=== PATIENT | male | born 1965 | race Caucasian/White ===

== ENCOUNTER 2016-12-11 19:17 | Emergency (ER) | payer BC, OTHER ==
[~2016-12-11] VITALS: Ht 177.8 cm; Wt 93.6 kg
[~2016-12-11 19:17] MED LIST: CETI10TA10 PO; FLNIN NAE; MULTTAB58 PO
[2016-12-11 19:18] VITALS: Ht 177.8 cm; Wt 93.6 kg
[2016-12-11] MEDS ORDERED: SODIUM CHLORIDE 0.9% 1000ML 1,000 ML IV STA (19:41)
[2016-12-11] MEDS ORDERED: FAMOTIDINE 20MG/102 ML D5W IV STA (19:41)
[2016-12-11] MEDS ORDERED: DiphenhydrAMINE HCL 50 MG/ML VIAL IV STA (19:41)
[2016-12-11] MEDS ORDERED: DEXAMETHASONE SOD INJ 4 MG/ML VIAL IV STA (19:41)
[2016-12-11 20:14] LABS: MANUAL MICROSCOPIC REQUIRED? NO; REVIEW REQ? NO; URINE APPEARANCE CLEAR (CLEAR); URINE BILIRUBIN NEG (NEG); URINE COLOR YELLOW; URINE NITRITE NEG (NEG); URINE PH 5.5 (4.5-7.5); URINE SPECIFIC GRAVITY 1.028 (1.000-1.030); UROBILINOGEN NEG (NEG)
--- NOTE | 2016-12-11 20:14 | DIAGNOSTIC IMAGING REPORT ---
CHEST ONE VIEW PORTABLE CLINICAL HISTORY: Fever, allergic reaction. COMPARISON STUDY: 10/15/2012 FINDINGS: The cardiac and mediastinal contours are normal. There is no evidence of focal pulmonary consolidation. There is no evidence of failure. No pleural effusions are visualized.[ IMPRESSION: No active disease in the chest. Electronically signed by: Alex Ann M.D. 12/11/2016 8:13 PM Dictated Date/Time: 12/11/2016 8:12 PM
[2016-12-11 20:15] LABS: HEMATOCRIT 39.3 % (42-52); MEAN CELL VOLUME 87.1 fL (80-100); MEAN CORPUSCULAR HEMOGLOBIN 30.2 pg (25-34); MEAN CORPUSCULAR HGB CONC 34.6 g/dl (32-36); MEAN PLATELET VOLUME 9.6 fL (7.4-10.4); PLATELET COUNT 212 K/uL (130-400); RED BLOOD COUNT 4.51 M/uL (4.7-6.1)
[2016-12-11] MEDS ORDERED: DEXAMETHASONE SOD INJ 10 MG/ML VIAL ONE (20:19)
[2016-12-11 20:29] LABS: BUN/CREATININE RATIO 13.5 (10-20); CALCIUM 8.3 mg/dl (8.5-10.1); CREATININE 1.3 mg/dl (0.60-1.40); POTASSIUM 3.6 mmol/L (3.5-5.1)
[2016-12-11 20:35] LABS: BASO % 0.1 %; BASO ABS # 0.01 K/uL (0-0.2); COMPLETE YES; EOS % 2.4 %; IG% 0.2 %; LYMPH % 4.6 %; LYMPH ABS # 0.58 K/uL (1.2-3.4); MONO % 6.3 %; NEUT % 86.4 %
--- NOTE | 2016-12-11 20:49 | DIAGNOSTIC IMAGING REPORT ---
CT SINUSES-MAXILLOFACIAL W/O CLINICAL HISTORY: severe sinus congestion COMPARISON STUDY: 07/12/2011 TECHNIQUE: CT scan of the paranasal sinuses was performed in the axial plane. Coronal reconstructed images were obtained and reviewed. CT DOSE: 645.38 mGy.cm FINDINGS: There is no evidence of hydrocephalus. No orbital masses are visualized. There is partial opacification of both maxillary sinuses. There are bilateral maxillary sinus air-fluid levels. There is minimal mucosal thickening within sphenoid. Multiple ethmoid air cells are opacified. There is mild mucosal thickening within the frontal sinuses. There is infundibular narrowing of the right ostiomeatal unit. There is a left-sided nasal septal spur. The frontal and and ethmoid infundibular recesses appear occluded by soft tissue The mastoid air cells appear well-aerated. The middle ear cavities appear well aerated. IMPRESSION: Moderately extensive ethmoid and maxillary sinus mucosal disease with bilateral maxillary sinus air-fluid levels. Electronically signed by: Alex Ann M.D. 12/11/2016 8:48 PM Dictated Date/Time: 12/11/2016 8:44 PM
[2016-12-11] MEDS ORDERED: FLUT0.15 NAE (21:13)
[2016-12-11] MEDS ORDERED: AMOXICILLIN/CLAVULANATE TAB 875 MG TAB PO ONE (22:00)
[2016-12-11] MEDS ORDERED: AMOX875T PO (22:27)
[2016-12-11] MEDS ORDERED: PRED50TA PO (22:27)
[2016-12-11 22:35] VITALS: BP 132/76; PULSE 80; TEMP 36.6; O2SAT 98
--- NOTE | 2016-12-12 01:50 | EMERGENCY ROOM VISIT NOTE ---
History Report prepared by Miki: Eduardo Salazar Under the Supervision of: Dr. Vel Jay M.D. First contact with patient: 19:28 Chief Complaint: FEVER Stated Complaint: FEVER, HIVES, SINUS CONGESTION History of Present Illness The patient is a 51 year old male who presents to the Emergency Room with complaints of worsening hives for the past 3 days. He notes that the hives are only on his upper body. He notes that the hives are itchy and red. The patient also complains of sinus pressure and congestion, low back pain, and fevers. He notes that he has had fevers around 100 to 101 for the past few days. This morning, the patient had an episode of diarrhea. The patient notes that he is in close contact with the flu in his work-place. He notes that yesterday he presented to a walk-in clinic and got swabbed for the flu which was negative. He notes that he was on a 14 day treatment of Levaquin a few weeks ago for a sinus infection. The patient was also recently on Bactrim for a toe infection. Both courses of these antibiotics were finished 7 days before the hives started. The patient took Benadryl for his hives about 5 hours ago which he notes did not help relieve his symptoms. He has also been rotating Tylenol and Motrin for his fevers. Pt denies LOC, headache, diaphoresis, visual changes, neck pain, chest pain, nausea, vomiting, abdominal pain, melena, hematochezia, numbness, weakness, lymphadenopathy, or other complaints. Source of History: patient Onset: 3 days Position: other (global) Timing: other (persistent) Associated Symptoms: + back pain, + diarrhea, + fevers Note: Other associated symptoms: itchy and red hives, sinus pressure and congestion Review of Systems See HPI for pertinent positives and negatives. A total of ten systems were reviewed and were otherwise negative. Past Medical & Surgical Medical Problems: (1) Tonsillectomy Family History FH: cancer FH: diabetes mellitus FH: seizures Social History Smoking Status: Never Smoker Marital Status: Housing Status: lives with significant other Occupation Status: employed Current/Historical Medications Scheduled Amoxicillin & Pot Clavulanate (Augmentin 875-125 mg), 875 MG PO BID Cetirizine Hcl (Zyrtec), 10 MG PO DAILY Fluticasone Propionate (Nasal) (Flonase Allergy Relief), 1 SPRAY ALEJANDRO DAILY Prednisone (Prednisone), 50 MG PO DAILY Allergies Coded Allergies: Acetaminophen (Unverified Allergy, Intermediate, ITCH, 12/11/16) Hydrocodone (Unverified Allergy, Intermediate, ITCH, 12/11/16) POLLEN (Unverified Allergy, Unknown, UNKNOWN, 10/08/12) Physical Exam Vital Signs Date Time Temp Pulse Resp B/P Pulse Ox O2 Delivery O2 Flow Rate FiO2 12/11/16 22:35 36.6 80 18 132/76 98 12/11/16 22:03 36.6 80 18 132/76 98 Room Air 12/11/16 21:12 85 18 121/77 98 Room Air 12/11/16 19:18 36.7 105 20 127/74 97 Room Air Physical Exam GENERAL: Awake, alert, mildly ill appearing, no distress HEAD: Normocephalic, atraumatic. No edema. EYES: Normal conjunctiva. Sclera non-icteric. EARS: Middle ear effusion in right ear.. Left TM normal. NOSE: Mild congestion. OROPHARYNX: Lips, tongue, and mucosa unremarkable. No erythema or exudate. No tongue or posterior oropharynx swelling. NECK: Supple. No nuchal rigidity. FROM. No adenopathy. Negative jolt accentuation test. RESPIRATORY: CTA bilaterally. No wheezes rales or rhonchi. CARDIAC: Borderline tachycardic rate, normal rhythm. ABDOMEN: Soft, non distended. No tenderness to palpation. NEURO: Normal sensorium. SKIN: Scattered hives on back, head, face, chest, trunk. Medical Decision & Procedures ER Provider Diagnostic Interpretation: X ray results as stated below per my interpretation and radiologist interpretation. Other radiology results as stated below per my review and radiologist interpretation CT SINUSES-MAXILLOFACIAL W/O CLINICAL HISTORY: severe sinus congestion COMPARISON STUDY: 07/12/2011 TECHNIQUE: CT scan of the paranasal sinuses was performed in the axial plane. Coronal reconstructed images were obtained and reviewed. CT DOSE: 645.38 mGy.cm FINDINGS: There is no evidence of hydrocephalus. No orbital masses are visualized. There is partial opacification of both maxillary sinuses. There are bilateral maxillary sinus air-fluid levels. There is minimal mucosal thickening within sphenoid. Multiple ethmoid air cells are opacified. There is mild mucosal thickening within the frontal sinuses. There is infundibular narrowing of the right ostiomeatal unit. There is a left-sided nasal septal spur. The frontal and and ethmoid infundibular recesses appear occluded by soft tissue The mastoid air cells appear well-aerated. The middle ear cavities appear well aerated. IMPRESSION: Moderately extensive ethmoid and maxillary sinus mucosal disease with bilateral maxillary sinus air-fluid levels. Electronically signed by: Alex Ann M.D. 12/11/2016 8:48 PM Dictated Date/Time: 12/11/2016 8:44 PM CHEST ONE VIEW PORTABLE CLINICAL HISTORY: Fever, allergic reaction. COMPARISON STUDY: 10/15/2012 FINDINGS: The cardiac and mediastinal contours are normal. There is no evidence of focal pulmonary consolidation. There is no evidence of failure. No pleural effusions are visualized.[ IMPRESSION: No active disease in the chest. Electronically signed by: Alex Ann M.D. 12/11/2016 8:13 PM Dictated Date/Time: 12/11/2016 8:12 PM Laboratory Results 12/11/16 19:53 Red Blood Count 4.51, Mean Corpuscular Volume 87.1, Mean Corpuscular Hemoglobin 30.2, Mean Corpuscular Hemoglobin Concent 34.6, Mean Platelet Volume 9.6, Neutrophils (%) (Auto) 86.4, Lymphocytes (%) (Auto) 4.6, Monocytes (%) (Auto) 6.3, Eosinophils (%) (Auto) 2.4, Basophils (%) (Auto) 0.1, Neutrophils # (Auto) 10.79, Lymphocytes # (Auto) 0.58, Monocytes # (Auto) 0.79, Eosinophils # (Auto) 0.30, Basophils # (Auto) 0.01 12/11/16 19:53 Test 12/11/16 19:53 White Blood Count 12.50 K/uL (4.8-10.8) Red Blood Count 4.51 M/uL (4.7-6.1) Hemoglobin 13.6 g/dL (14.0-18.0) Hematocrit 39.3 % (42-52) Mean Corpuscular Volume 87.1 fL (80-100) Mean Corpuscular Hemoglobin 30.2 pg (25-34) Mean Corpuscular Hemoglobin Concent 34.6 g/dl (32-36) Platelet Count 212 K/uL (130-400) Mean Platelet Volume 9.6 fL (7.4-10.4) Neutrophils (%) (Auto) 86.4 % Lymphocytes (%) (Auto) 4.6 % Monocytes (%) (Auto) 6.3 % Eosinophils (%) (Auto) 2.4 % Basophils (%) (Auto) 0.1 % Neutrophils # (Auto) 10.79 K/uL (1.4-6.5) Lymphocytes # (Auto) 0.58 K/uL (1.2-3.4) Monocytes # (Auto) 0.79 K/uL (0.11-0.59) Eosinophils # (Auto) 0.30 K/uL (0-0.5) Basophils # (Auto) 0.01 K/uL (0-0.2) RDW Standard Deviation 39.9 fL (36.4-46.3) RDW Coefficient of Variation 12.5 % (11.5-14.5) Immature Granulocyte % (Auto) 0.2 % Immature Granulocyte # (Auto) 0.03 K/uL (0.00-0.02) Urine Color YELLOW Urine Appearance CLEAR (CLEAR) Urine pH 5.5 (4.5-7.5) Urine Specific [place] 1.028 (1.000-1.030) Urine Protein NEG (NEG) Urine Glucose (UA) NEG (NEG) Urine Ketones TRACE (NEG) Urine Occult Blood NEG (NEG) Urine Nitrite NEG (NEG) Urine Bilirubin NEG (NEG) Urine Urobilinogen NEG (NEG) Urine Leukocyte Esterase NEG (NEG) Anion Gap 8.0 mmol/L (3-11) Est Creatinine Clear Calc Drug Dose 76.4 ml/min Estimated GFR () 72.7 Estimated GFR (Non- 62.7 BUN/Creatinine Ratio 13.5 (10-20) Calcium Level 8.3 mg/dl (8.5-10.1) Total Bilirubin 1.0 mg/dl (0.2-1) Direct Bilirubin 0.2 mg/dl (0-0.2) Aspartate Amino Transf (AST/SGOT) 18 U/L (15-37) Alanine Aminotransferase (ALT/SGPT) 30 U/L (12-78) Alkaline Phosphatase 71 U/L (45-117) Total Protein 7.2 gm/dl (6.4-8.2) Albumin 3.3 gm/dl (3.4-5.0) Laboratory results reviewed by me Medications Administered Medications (Trade) Dose Ordered Sig/Cholo Route Start Time Stop Time Status Last Admin Dose Admin Sodium Chloride (Nss 1000ml) 1,000 ml @ 999 mls/hr Q1H1M STAT IV 12/11/16 19:41 12/11/16 20:41 DC 12/11/16 20:19 999 MLS/HR Diphenhydramine HCl (Benadryl Inj) 50 mg NOW STAT IV 12/11/16 19:41 12/11/16 19:47 DC 12/11/16 20:19 50 MG Famotidine (Pepcid 20mg/100 ml) 20 mg ONE STAT IV 12/11/16 19:41 12/11/16 19:47 DC 12/11/16 20:19 20 MG Dexamethasone Sodium Phosphate (Decadron Inj) 10 mg STK-MED ONCE .ROUTE 12/11/16 20:19 12/11/16 20:20 DC 12/11/16 20:19 10 MG Amoxicillin/ Clavulanate Potassium (Augmentin Tab) 875 mg ONE ONCE PO 12/11/16 22:00 12/11/16 22:01 DC 12/11/16 22:03 875 MG ED Course 1931: The patient was evaluated in room B3. A complete history and physical exam was performed. 1940: Ordered Famotidine 20 mg IV, Benadryl 50 mg IV, NSS 1000 ml @ 999 mls/hr IV. 2018: Ordered Decadron 10 mg .ROUTE. 2120: At this time, I reevaluated the patient and he was feeling better. 2199: Ordered Augmentin Tab 875 mg PO. 2214: I reevaluated the patient. Discussed results and discharge instructions: He verbalized understanding and agreement. The patient is ready for discharge. Medical Decision Prior records/ancillary studies reviewed. Triage Nursing notes reviewed and agree them. Additional history obtained from patient's . The patient's history was concerning for hives as well as sinus issues Differential diagnosis: Etiologies such as allergic reaction, anaphylaxis, urticaria, Alexandra-Eloy syndrome, toxic epidermal necrolysis, erythema multiforme, sinusitis, viral syndrome, as well as others were entertained. Physical examination: As above. ER treatment provided: Continuous cardiac monitoring Benadryl 50 mg IV Pepcid 20 mg IV Decadron 10 mg IV On reassessment the patient felt much better. Redness and hives were diminished. Some are still present. Oral Augmentin Diagnostic interpretation by me: The labs revealed a slight leukocytosis. Chemistry panel and urinalysis were unremarkable. LFTs were unremarkable. Imaging studies: CT scan as above The patient is doing much better. He had hives but has not been on any antibiotics for almost a week. He does have significant sinus drainage and findings concerning for sinusitis on CT imaging. The exact etiology of his urticaria was not obvious. This may be related to the infection. I discussed conservative management with the patient. He states he has had to be prescribed 4 weeks of antibiotics in the past to help clear his sinus issues. He has done well with Augmentin in the past. The patient was given an oral dose of Augmentin and will be prescribed a full 28 days. I will also give him prednisone for the next 4 days. He'll use Benadryl and Zantac. The patient and his felt very comfortable. He will follow-up closely as an outpatient. I did offer referral to ENT.I gave my usual and customary discussion regarding this issue. By the evaluation outlined above emergent etiologies such as airway compromise, Alexandra-Eloy syndrome, toxic epidermal necrolysis, erythema multiforme, cellulitis, meningitis, abscess, Pott's puffy tumor, as well as others were deemed relatively unlikely. The patient and for informed about the findings as listed above. All questions were answered and they were pleased with the treatment. Return instructions were outlined and the patient was discharged in stable condition. Outpatient prescription management: Augmentin prednisone Referral: The patient was referred back to his primary care physician and to ENT for follow-up in 2-3 days for a recheck of the current condition. The chart was completed utilizing [employer] Speech voice recognition software. Grammatical errors, random word insertions, pronoun errors, and incomplete sentences are an occasional side effect of this system due to software limitations, ambient noise, and hardware issues. Any formal questions or concerns about the content, text, or information contained within the body of this dictation should be directly addressed to the physician for clarification. Impression Primary Impression: Urticaria Additional Impressions: Sinusitis Fever Scribe Attestation The scribe's documentation has been prepared under my direction and personally reviewed by me in its entirety. I confirm that the note above accurately reflects all work, treatment, procedures, and medical decision making performed by me. Departure Information Dispostion Home / Self-Care Prescriptions Prednisone (Prednisone) 50 Mg Tab 50 MG PO DAILY for 4 Days, #4 TAB Prov: Vel Jay MD 12/11/16 Amoxicillin & Pot Clavulanate (Augmentin 875-125 mg) 1 Tab Tab 875 MG PO BID for 28 Days, #55 TAB Prov: Vel Jay MD 12/11/16 Referrals Shyam Byrd M.D. (PCP) Forms HOME CARE DOCUMENTATION FORM, IMPORTANT VISIT INFORMATION Patient Instructions My [facility] Additional Instructions DO NOT drive, drink alcohol, operate machinery, or perform dangerous activities today. You were given medications in the ER that can affect your ability to safely function or operate a vehicle. Prednisone 50mg: Once daily until the prescription is finished. It is best to take this earlier in the day as some patients note occasional difficulty falling asleep when taken in the late evening. Diphenhydramine(Benadryl) 25mg: use 25 to 50 mg every six hours for swelling, itching, or hives. This medication is sedating and will cause drowsiness. Avoid alcohol, operating machinery or dangerous equipment, working on ladders or roofs, DRIVING, or situations where being under the influence may be dangerous. Zantac 75: Take two pills twice a day along with Benadryl as needed for swelling , itching, or hives. Most people know this for its affect on the stomach, but it also acts similar to, but less potent than Benadryl for allergic reactions. Both the Benadryl and the Zantac are available [id number]. Amoxicillin Clavulanate (Augmentin) 875mg: Take one pill twice daily for 28 days for your sinus infection. All antibiotics can cause diarrhea. If this occurs and you feel worse or it does not resolve in 1-2 days follow up with your doctor or return to the Emergency Department as this could be signs of serious underlying problems. Any medication can cause an allergic reaction, stop the pills immediately and return to the ER for rash, hives, breathing difficulties, or swelling. Continue current medications. Return to the emergency department for worsening of your rash, swelling of your face, lips, tongue, or throat, difficulty breathing, vomiting, or as needed. Follow-up with your primary care physician in 2 to 3 days for a recheck of your current condition. Follow-up with Dr. Salcedo, ENT as listed below. Call the office tomorrow. Problem Qualifiers Additional Impressions: Sinusitis Sinusitis location: pansinusitis Chronicity: subacute Qualified Codes: J01.40 - Acute pansinusitis, unspecified Fever Encounter type: initial encounter
== END 2016-12-11 22:41 | disposition home or self-care (01) ==
LOC: C.EDB 19:18
DX: J01.00 Acute maxillary sinusitis, unspecified (principal); J01.20 Acute ethmoidal sinusitis, unspecified; R50.9 Fever, unspecified; R19.7 Diarrhea, unspecified; L50.9 Urticaria, unspecified

== ENCOUNTER → 2017-01-18 | Outpatient (CLI) | payer BC, OTHER ==
[~2017-01-18] MED LIST changes: -FLNIN NAE; +FLUT0.15 NAE; -MULTTAB58 PO
--- NOTE | 2017-01-18 16:22 | DIAGNOSTIC IMAGING REPORT ---
Study: Fusion CT sinuses. HISTORY: Sinus infections FINDINGS: High-resolution transaxial CT of the sinuses is acquired transaxially. There are multi axially reformatted images. Comparison is made to a prior study dated 07/12/2011. There has been placement of bilateral antral windows. These are patent. There is mild soft tissue narrowing of those structures. The sphenoid sinuses are clear as are the ethmoid sinuses. There has been a partial ethmoidectomy bilaterally. Mild mucosal thickening of the frontal sinuses in this patient. Minimal hyperplastic changes the nasal turbinates. IMPRESSION: 1. Interval placement of bilateral antral windows as well as prior partial ethmoidectomies. 2. Antral windows are patent although there is mild soft tissue narrowing. 3. Minimal to very mild mucosal thickening of all major sinuses. Electronically signed by: Pedro Salvador M.D. 01/18/2017 4:20 PM Dictated Date/Time: 01/18/2017 4:17 PM
== END | disposition home or self-care (01) ==
LOC: C.CTS 16:06
DX: J34.3 Hypertrophy of nasal turbinates (principal)

== ENCOUNTER 2019-03-27 14:44 | Observation (INO) ==
--- NOTE | 2019-03-27 15:02 | Emergency Department Note ---
History of Present Illness General Chief complaint: Infection Stated complaint: LT LEG INFECTION FROM BUG BITE Time Seen by Provider: 03/27/19 14:57 History of Present Illness Maximum Pain Intensity: 5 This is a 53-year-old male that presents to the emergency department via private vehicle with complaints of "left leg infection from bug bite". The patient states that 7 days ago he was kayaking began with a reddened area to the left anterior thigh. He is unsure what may have bitten him. He has never had this before. No history of MRSA. Pain is a 4/10. He notes that he is been doing warm compresses since last night and it came to ahead this morning and he tried popping it but only a small drop of blood was expressed. No purulence. He then notes that over the past day there has been increased redness to the area and swelling. He notes pain on the left lateral thigh. He denies any fevers or chills. He believes his tetanus is up-to-date. No nausea or vomiting. Home Medications Home Medications Medication Instructions Recorded Confirmed Type Unknown Allergy Eye Drops 1 drp OTB BID PRN 03/27/19 03/27/19 History albuterol sulfate [ProAir HFA] 2 puff INHALATION Q4H PRN 03/27/19 03/27/19 Histo ry azelastine 2 spray INTRANASAL DAILY PRN 03/27/19 03/27/19 History cetirizine 10 mg PO DAILY PRN 03/27/19 03/27/19 History epinephrine 0.3 mg IM Q3H PRN 03/27/19 03/27/19 History fluticasone propionate 2 spray INTRANASAL DAILY PRN 03/27/19 03/27/19 History Allergies Allergy/AdvReac Type Severity Reaction Status Date / Time acetaminophen Allergy Intermediate ITCH Unverified 12/11/16 21:11 hydrocodone Allergy Intermediate ITCH Unverified 03/27/19 16:36 pollen extracts Allergy Unknown UNKNOWN Unverified 03/27/19 16:36 Past Med/Surg History Medical History No pertinent past medical history Surgical History No pertinent past surgical history Family History Other Cancer Diabetes Social History Preferred Language: Macedonian Communication Ability: Effective Broke Handler Required: No Beliefs That Will Affect Care: Orthodox Orthodox Beliefs: [employer] Current Living Situation: Spouse and Family Other Information That Helps Us Care for You: No Feels Safe at Home: Yes Safety Concerns: Feels Safe At This Time Smoking Status: Never smoker Do You Dip or Chew Tobacco: Yes (1/2 can/day) Sec ond Hand Exposure: Yes (in childhood) Tobacco Cessation Education Requested by Patient: No Hx Alcohol Use: Yes Hx Substance Use: No Physical Exam Vital Signs Vital Signs - 24 hr 03/27/19 14:53 03/27/19 16:00 03/27/19 17:35 Temperature 37.0 C Temperature Source Oral Sepsis Recent Fever Within 48 Hours No Sepsis New/Unexplained Change in Mental Status No Sepsis Action Taken by Nursing No Action Required Pulse Rate 116 H Pulse Rate [Left Finger] 79 94 H Respiratory Rate 16 18 20 Respiratory Effort / Characteristics Non-Labored Non-Labored Spontaneous Non-Labored Spontaneous Respiratory Depth Normal Blood Pressure 140/67 Blood Pressure [Left Arm] 155/82 H 116/82 Blood Pressure Mean 91 Blood Pressure Mean [Left Arm] 106 93 Blood Pressure Position Sitting Blood Pressure Position [Left Arm] Lying Lying Pulse Oximetry 96 97 98 Oxygen Delivery Method Room Air Room Air Room Air 03/27/19 18:12 Temperature Temperature Source Sepsis Recent Fever Within 48 Hours Sepsis New/Unexplained Change in Mental Status Sepsis Action Taken by Nursing Pulse Rate Pulse Rate [Left Finger] Respiratory Rate Respiratory Effort / Characteristics Respiratory Depth Blood Pressure Blood Pressure [Left Arm] Blood Pressure Mean Blood Pressure Mean [Left Arm] Blood Pressure Position Blood Pressure Position [Left Arm] Pulse Oximetry Oxygen Delivery Method Room Air VITAL SIGNS - Vital signs and nursing notes were reviewed. Tachycardic, otherwise stable. GENERAL -53-year-old male appearing his stated age who is in no acute distress. Communicates well with provider and answers questions appropriately. SKIN -overlying left anterior/lateral inferior thigh there is an erythematous with a central indurated and darkened region that is protruding slightly. No lymphogenic streaking. HEAD - NC/AT. EYES - PERRL with EOMI bilaterally. EARS - No deformities of external structures noted on gross examination bilaterally. NOSE - Midline and without cyanosis. No epistaxis or purulent drainage noted. MOUTH/OROPHARYNX - Without perioral cyanosis. Buccal mucosa pink and moist and without leukoplakia. Tongue midline with equal elevation of palate bilaterally. No tonsillar hypertrophy, erythema, or exudates noted. Good dentition noted. NECK - Neck with FROM. Supple to palpation. No lymphadenopathy noted. No nuchal rigidity. LUNGS - Chest wall symmetric without accessory muscle use, intercostals retractions, or central cyanosis. Normal vesicular breath sounds CTA B/L. No wheezes, rales, or rhonchi appreciated. CARDIAC - RRR with S1/S2. No murmur, rubs, or gallops appreciated. EXTREMITIES - No clubbing or peripheral cyanosis. No pretibial edema present. +5/5 strength noted in UE/LE bilaterally. NEUROLOGIC - Cranial nerves II through XII grossly intact. PSYCH - A&O, and cooperates fully with examiner. Pt is very pleasant and interacts well with examiner. Course Administered Medications Doxycycline Hyclate 100 mg/ (Dextrose) 110 mls @ 50 mls/hr IV NOW STA Stop: 03/27/19 19:11 Last Admin: 03/27/19 17:29 Dose: 50 mls/hr Documented by: [id number] Discontinued Medications Sodium Chloride (Nss 1000ml) 1,000 mls @ 999 mls/hr IV .Q1H1M GARY Stop: 03/27/19 16:30 Last Infusion: 03/27/19 16:59 Dose: 0 mls/hr Documented by: [id number] Admin: 03/27/19 15:58 Dose: 999 mls/hr Documented by: [id number] Ceftriaxone Sodium (Rocephin) 1,000 mg in 50 mls @ 100 mls/hr IV NOW STA Stop: 03/27/19 17:00 Last Infusion: 03/27/19 17:14 Dose: 0 mls/hr Documented by: [id number] Admin: 03/27/19 16:44 Dose: 100 mls/hr Documented by: [id number] Medical Decision Making Laboratory Data Result diagrams: 03/27/19 15:41 03/27/19 15:41 Lab Results 03/27/19 03/27/19 03/27/19 Range/Units 15:41 15:41 15:41 WBC 15.40 H (4.8-10.8) K/uL RBC 4.90 (4.7-6.1) M/uL Hgb 15.2 (14.0-18.0) g/dL Hct 44.4 (42-52) % MCV 90.6 (80-100) fL MCH 31.0 (25-34) pg MCHC 34.2 (32-36) g/dL RDW Std Deviation 42.8 (36.4-46.3) fL RDW Coeff of Shaq 12.8 (11.5-14.5) % Plt Count 246 (130-400) K/uL MPV 10.2 (7.4-10.4) fL Immature Gran % (Auto) 0.3 % Neut % (Auto) 75.3 % Lymph % (Auto) 11.8 % Swain % (Auto) 10.5 % Eos % (Auto) 1.9 % Baso % (Auto) 0.2 % Immature Gran # (Auto) 0.04 H (0.00-0.02) K/uL Neut # (Auto) 11.60 H (1.4-6.5) K/uL Lymph # (Auto) 1.82 (1.2-3.4) K/uL Swain # (Auto) 1.61 H (0.11-0.59) K/uL Eos # (Auto) 0.30 (0-0.5) K/uL Baso # (Auto) 0.03 (0-0.2) K/uL Sodium 137 (136-145) mmol/L Potassium 3.9 (3.5-5.1) mmol/L Chloride 103 (98-107) mmol/L Carbon Dioxide 29 (21-32) mmol/L Anion Gap 4.0 (3-11) BUN 15 (7-18) mg/dl Creatinine 1.27 (0.6-1.4) mg/dl Est Cr Clr Drug Dosing 77.6 ml/min Est GFR ( Amer) 73.7 Est GFR (Non-Af Amer) 63.6 BUN/Creatinine Ratio 11.7 (10-20) Glucose 104 H (70-99) mg/dl Calcium 9.0 (8.5-10.1) mg/dl Total Bilirubin 0.9 (0.2-1) mg/dl AST 13 L (15-37) U/L ALT 28 (12-78) U/L Alkaline Phosphatase 77 (45-117) U/L Total Protein 7.7 (6.4-8.2) gm/dl Albumin 3.8 (3.4-5.0) gm/dl Globulin 3.9 (2.5-4.0) gm/dl Albumin/Globulin Ratio 1.0 (0.9-2) Lyme Disease IgG Ab Positive A (Negative) Lyme Disease IgM Ab Equivocal A (Negative) Imaging Data Radiologist's Impression: ULTRASOUND LEFT LOWER EXTREMITY NONVASCULAR CLINICAL HISTORY: Left lateral thigh infection. COMPARISON STUDY: No priors. FINDINGS: Real-time, grayscale, and color flow sonography of the soft tissues of the left thigh is performed at the indicated site of interest. There is subcutaneous soft tissue edema and subcutaneous fluid identified at this site with probable phlegmonous change. No organized fluid collection is identified to indicate abscess. IMPRESSION: There is subcutaneous soft tissue edema and fluid identified at the indicated site of interest which likely represents cellulitis. No organized fluid collection is seen to suggest abscess. Electronically signed by: Zion Soriano M.D. 03/27/2019 4:28 PM MDM Narrative Patient was seen and evaluated as above in room C4. Review was performed of nursing notes and vital signs. After obtaining a thorough history and physical examination the above work up was performed. He presents to us today with an infection on the left lower extremity. This is consistent with cellulitis. IV access was established given his tachycardia and amount of erythema. CBC reveals leukocytosis of 15.40 without anemia. No emergent metabolic abnormality. His Lyme IgG was positive with an equivocal IgM. I added IV Rocephin as well as IV doxycycline for skin pathogen coverage as well as the Lyme. I will note that I believe that the Lyme finding is independent and separate from his cellulitis here today. Given the patient's rapid worsening of the erythema, tachycardia on arrival, white blood cell count I do believe that further evaluation and management is warranted in the inpatient setting. Patient was offered outpatient versus inpatient management and through shared decision making at this time elected to perform inpatient management at least here initially. I did obtain an ultrasound which shows no organized fluid collection to indicate abscess. I discussed the case with the attending physician as well as the hospitalist. Please refer to further documentation regarding his stay. Case was discussed with the attending physician. In the evaluation and treatment of this patient the following differential diagnoses were entertained: Cellulitis, abscess, sepsis, bacteremia, among others. Impression & Plan Cellulitis, Tachycardia, Leukocytosis, Positive Lyme disease serology Discharge Plan Visit Data Chief Complaint: Infection Stated Complaint: LT LEG INFECTION FROM BUG BITE ED Provider: Ryder Leach ED Midlevel Provider: Dao Harper Discharge Problem: Cellulitis, Tachycardia, Leukocytosis, Positive Lyme disease serology Patient Disposition: Admitted As Inpatient Condition: Good Forms Stand Alone Forms: [facility] [employer] Prescriptions Prescriptions: No Action azelastine 137 mcg (0.1 %) aerosol,spray 2 spray intranasal DAILY PRN (Reason: Allergy Symptoms) RF: 0 fluticasone propionate 50 mcg/actuation spray,suspension 2 spray intranasal DAILY PRN (Reason: Allergy Symptoms) RF: 0 cetirizine 10 mg Tablet 10 mg PO DAILY PRN (Reason: Allergy Symptoms) RF: 0 albuterol sulfate [ProAir HFA] 90 mcg/actuation HFA aerosol inhaler 2 puff inhalation Q4H PRN (Reason: Shortness Of Breath Or Wheezing) RF: 0 epinephrine 0.3 mg/0.3 mL Auto-Injector 0.3 mg IM Q3H PRN (Reason: Allergy Symptoms) RF: 0 Unknown Allergy Eye Drops 1 drp OTB BID PRN (Reason: Allergy Symptoms) RF: 0 Referrals Referrals: Fercho Byrd MD [Primary Care Provider] -
[2019-03-27] MEDS ORDERED: SODIUM CHLORIDE 0.9% 1000ML 1,000 ML IV SCH (15:30)
[2019-03-27 16:02] LABS: Basophils # (auto) 0.03 K/uL (0-0.2); Basophils % (auto) 0.2 %; Eosinophils % (auto) 1.9 %; Hematocrit (blood only) 44.4 % (42-52); Hemoglobin 15.2 g/dL (14.0-18.0); Immature Granulocytes # (auto) 0.04 K/uL (0.00-0.02); Immature Granulocytes % (auto) 0.3 %; Lymphocytes # (auto) 1.82 K/uL (1.2-3.4); Lymphocytes % (auto) 11.8 %; Mean Corpuscular Hgb Conc 34.2 g/dL (32-36); Mean Corpuscular Volume 90.6 fL (80-100); Mean Platelet Volume 10.2 fL (7.4-10.4); Monocytes # (auto) 1.61 K/uL (0.11-0.59); Monocytes % (auto) 10.5 %; Neutrophils % (auto) 75.3 %; Platelet Count 246 K/uL (130-400); RDW Coefficient of Variation 12.8 % (11.5-14.5); RDW Standard Deviation 42.8 fL (36.4-46.3)
[2019-03-27 16:21] LABS: Albumin Level 3.8 gm/dl (3.4-5.0); BUN Creatinine Ratio 11.7 (10-20); Creatinine Clr Calc Pharmacy 77.6 ml/min; Est GFR (African American) 73.7; Est GFR (Non-African American) 63.6; Potassium 3.9 mmol/L (3.5-5.1)
[2019-03-27 16:24] LABS: Bilirubin,Total 0.9 mg/dl (0.2-1); Globulin 3.9 gm/dl (2.5-4.0); Total Protein 7.7 gm/dl (6.4-8.2)
--- NOTE | 2019-03-27 16:29 | Ultrasound Report ---
ULTRASOUND LEFT LOWER EXTREMITY NONVASCULAR CLINICAL HISTORY: Left lateral thigh infection. COMPARISON STUDY: No priors. FINDINGS: Real-time, grayscale, and color flow sonography of the soft tissues of the left thigh is pe rformed at the indicated site of interest. There is subcutaneous soft tissue edema and subcutaneous f luid identified at this site with probable phlegmonous change. No organized fluid collection is ident ified to indicate abscess. IMPRESSION: There is subcutaneous soft tissue edema and fluid identified at the indicated site of int erest which likely represents cellulitis. No organized fluid collection is seen to suggest abscess. Electronically signed by: Zion Soriano M.D. 03/27/2019 4:28 PM
[2019-03-27] MEDS ORDERED: cefTRIAXone SODIUM 1,000 MG/50 ML BAG IV STA (16:31)
[2019-03-27 16:48] LABS: Lyme Ab IgG w/WB Rflx Positive (Negative); Lyme Ab IgM w/WB Rflx Equivocal (Negative)
[2019-03-27] MEDS ORDERED: DOXYCYCLINE HYCLATE 100 MG in DEXTROSE 5% 100 ML IV STA (17:00)
--- NOTE | 2019-03-27 18:27 | History & Physical Report ---
Date of Service March 27, 2019 Assessment & Plan (1) Cellulitis: Patient with moderately severe non-purulent LLE cellulitis, progressive over the last week. Area of firm induration, no drainable collection. Patient tachycardic on arrival, neutrophil predominant leukocytosis with WBC=15.4. Systemic symptoms of malaise, fatigue and chills. Presently afebrile, hemodynamically stable, NAD. -Admit to medical floor -Clindamycin 600mg IV q 8 hours -Manuel area daily -Follow blood culture results Present on Admission?: Yes (2) Positive Lyme disease serology: Patient with equivocal IgM, no known tick bite -Doxycycline 100mg iV BID -Await serologies F/E/N - NSS, electrolytes WNL, Regular diet as tolerated Ppx - Low risk Code - Full Dispo - Medical floor History of Present Illness Chief Complaint: Cellulitis Primary Care Provider: Shyam Byrd MD Shamar Adan is a pleasant 53yo C male with no significant past medical or surgical history presenting with cellullitis of the left thigh. Patient was kayaking 7 days ago and thinks he may have gotten a bug bite on his left lateral thigh. Over the last week he developed progressive redness, swelling and induration of the area. He has had increased pain and difficulty walking. Also with some flu-like symptoms which began two days ago - malaise/fatigue and body aches. He denies fevers/chills/nausea/vomiting/diarrhea/constipation. He has been using a warm compress and topical antibiotics, tried to squeeze the indurated area and got a small amount of blood from it, no pus. He is frequently outdoors and enjoys camping, hiking and mushrooming. He does not recall having any tick bites. He does comment that he has had several months of fatigue. Also with a dull frontal RAMIREZ. ER Course: Ceftriaxone, Doxycycline, NSS Allergies Allergy/AdvReac Type Severity Reaction Status Date / Time acetaminophen Allergy Intermediate ITCH Unverified 12/11/16 21:11 hydrocodone Allergy Intermediate ITCH Unverified 03/27/19 16:36 pollen extracts Allergy Unknown UNKNOWN Unverified 03/27/19 16:36 Home Medications Home Medications Medication Instructions Recorded Confirmed Type Unknown Allergy Eye Drops 1 drp OTB BID PRN 07/17/19 07/17/19 History albuterol sulfate [ProAir HFA] 2 puff INHALATION Q4H PRN 03/27/19 03/27/19 History azelastine 2 spray INTRANASAL DAILY PRN 03/27/19 03/27/19 History cetirizine 10 mg PO DAILY PRN 03/27/19 03/27/19 History epinephrine 0.3 mg IM Q3H PRN 03/27/19 03/27/19 History fluticasone propionate 2 spray INTRANASAL DAILY PRN 03/27/19 03/27/19 History Past Med/Surg History Medical History No pertinent past medical history Surgical History No pertinent past surgical history Family History Other Cancer Diabetes Social History Preferred Language: Lithuanian Communication Ability: Effective Patent Prosecution Paralegal Required: No Beliefs That Will Affect Care: Sikhism Sikhism Beliefs: United Yazidi Current Living Situation: Spouse and Family Other Information That Helps Us Care for You: No Feels Safe at Home: Yes Safety Concerns: Feels Safe At This Time Smoking Status: Never smoker Do You Dip or Chew Tobacco: Yes (1/2 can/day) Second Hand Exposure: Yes (in childhood) Tobacco Cessation Education Requested by Patient: No Hx Alcohol Use: Yes Hx Substance Use: No Review of Systems Review of Systems: All systems reviewed & are unremarkable except as noted in HPI & below Physical Exam Physical Exam: General: patient resting comfortably, NAD, non-toxic in appearance, AA&O x 4 Skin: warm, dry, intact HEENT: NC/AT, PERRL, EOMI, anicteric sclera, conjunctiva without injection, external ear normal to inspection and nontender, nares patent, moist mucus membranes, dentition intact, no oropharyngeal lesions, neck supple, trachea midline, no LAD, no thyromegaly, no JVD Heart: +S1/S2, regular, no m/r/g Lungs: equal air entry bilaterally, no rales/rhonchi/wheezes Abd: +BS, soft, NT/ND, no masses/organomegaly/ascites Ext: warm, 2+ pulses in UE/LE bilaterally, no clubbing/cyanosis or edema. Left lateral thigh red, warm and tender to palpation. Area of firm induration without fluctuance or drainage. No crepitus/bullae or lymphangitic streaking. Area marked prior to arrival by patient's - some redness has extended beyond the manuel over the last few hours. Marked again by ER staff. Neuro: nonfocal, patient AA&O x 4, speech intact, no facial droop, moving all extremities on command with equal strength 5/5 Results & Data Vital Signs (Past 12 Hours) Vital Signs Temp Pulse Pulse Resp BP BP Pulse Ox 03/27/19 17:35 94 H 20 116/82 98 03/27/19 16:00 79 18 155/82 H 97 03/27/19 14:53 37.0 C 116 H 16 140/67 96 Laboratory Results Lab Results 03/27/19 03/27/19 03/27/19 Range/Units 15:41 15:41 15:41 WBC 15.40 H (4.8-10.8) K/uL RBC 4.90 (4.7-6.1) M/uL Hgb 15.2 (14.0-18.0) g/dL Hct 44.4 (42-52) % MCV 90.6 (80-100) fL MCH 31.0 (25-34) pg MCHC 34.2 (32-36) g/dL RDW Std Deviation 42.8 (36.4-46.3) fL RDW Coeff of Shaq 12.8 (11.5-14.5) % Plt Count 246 (130-400) K/uL MPV 10.2 (7.4-10.4) fL Immature Gran % (Auto) 0.3 % Neut % (Auto) 75.3 % Lymph % (Auto) 11.8 % Donley % (Auto) 10.5 % Eos % (Auto) 1.9 % Baso % (Auto) 0.2 % Immature Gran # (Auto) 0.04 H (0.00-0.02) K/uL Neut # (Auto) 11.60 H (1.4-6.5) K/uL Lymph # (Auto) 1.82 (1.2-3.4) K/uL Donley # (Auto) 1.61 H (0.11-0.59) K/uL Eos # (Auto) 0.30 (0-0.5) K/uL Baso # (Auto) 0.03 (0-0.2) K/uL Sodium 137 (136-145) mmol/L Potassium 3.9 (3.5-5.1) mmol/L Chloride 103 (98-107) mmol/L Carbon Dioxide 29 (21-32) mmol/L Anion Gap 4.0 (3-11) BUN 15 (7-18) mg/dl Creatinine 1.27 (0.6-1.4) mg/dl Est Cr Clr Drug Dosing 77.6 ml/min Est GFR ( Amer) 73.7 Est GFR (Non-Af Amer) 63.6 BUN/Creatinine Ratio 11.7 (10-20) Glucose 104 H (70-99) mg/dl Calcium 9.0 (8.5-10.1) mg/dl Total Bilirubin 0.9 (0.2-1) mg/dl AST 13 L (15-37) U/L ALT 28 (12-78) U/L Alkaline Phosphatase 77 (45-117) U/L Total Protein 7.7 (6.4-8.2) gm/dl Albumin 3.8 (3.4-5.0) gm/dl Globulin 3.9 (2.5-4.0) gm/dl Albumin/Globulin Ratio 1.0 (0.9-2) Lyme Disease IgG Ab Positive A (Negative) Lyme Disease IgM Ab Equivocal A (Negative) Diagnostic Findings ULTRASOUND LEFT LOWER EXTREMITY NONVASCULAR CLINICAL HISTORY: Left lateral thigh infection. COMPARISON STUDY: No priors. FINDINGS: Real-time, grayscale, and color flow sonography of the soft tissues of the left thigh is performed at the indicated site of interest. There is subcutaneous soft tissue edema and subcutaneous fluid identified at this site with probable phlegmonous change. No organized fluid collection is identified to indicate abscess. IMPRESSION: There is subcutaneous soft tissue edema and fluid identified at the indicated site of interest which likely represents cellulitis. No organized fluid collection is seen to suggest abscess. Electronically signed by: Zion Soriano M.D. 03/27/2019 4:28 PM Dictated: 03/27/19 1626 Transcribed: 03/27/19 1626 Code Status & VTE Plan Code Status FULL PG Care Time/CCT Total # of Minutes Spent Total Time Spent with Patient: Total time spent is greater than 50% in coordination of care (as documented) at patient's floor/unit and/or counseling patient:40 (1) Cellulitis Site of cellulitis: extremity Site of cellulitis of extremity: lower extremity Laterality: left Qualified Code(s): L03.116 - Cellulitis of left lower limb
[2019-03-27] MEDS ORDERED: FLUTICASONE PROPIONATE NA SPR 16 GM BTL PRN (19:37)
[2019-03-27] MEDS ORDERED: DOCUSATE SODIUM 100 MG CAP PO PRN (19:37)
[2019-03-27] MEDS ORDERED: NICOTINE 14 MG/24 HR PATCH TD PRN (19:37)
[2019-03-27] MEDS ORDERED: [UNRECOGNIZED DRUG - REMARK] OTB PRN (19:37)
[2019-03-27] MEDS ORDERED: CETIRIZINE HCL 10 MG TABLET PO PRN (19:37)
[2019-03-27] MEDS: SODIUM CHLORIDE 0.9% 1000ML 1,000 ML IV SCH (20:21)
[2019-03-27] MEDS: CLINDAMYCIN 600 MG in DEXTROSE 5% 50 ML IV SCH (20:21)
[2019-03-27] MEDS: KETOROLAC TROMETHAMINE 15 MG/ML VIAL IV PRN (20:56)
[2019-03-28] MEDS: KETOROLAC TROMETHAMINE 15 MG/ML VIAL IV PRN (04:10)
[2019-03-28] MEDS: CLINDAMYCIN 600 MG in DEXTROSE 5% 50 ML IV SCH ×3 (04:12→20:01)
[2019-03-28] MEDS: DOXYCYCLINE HYCLATE 100 MG in DEXTROSE 5% 100 ML IV SCH ×2 (06:17→17:37)
[2019-03-28 07:53] LABS: Basophils # (auto) 0.03 K/uL (0-0.2); Basophils % (auto) 0.2 %; Eosinophils # (auto) 0.27 K/uL (0-0.5); Eosinophils % (auto) 2.1 %; Hematocrit (blood only) 39.8 % (42-52); Hemoglobin 13.4 g/dL (14.0-18.0); Immature Granulocytes # (auto) 0.04 K/uL (0.00-0.02); Immature Granulocytes % (auto) 0.3 %; Lymphocytes # (auto) 1.71 K/uL (1.2-3.4); Lymphocytes % (auto) 13.5 %; Mean Corpuscular Hgb Conc 33.7 g/dL (32-36); Mean Corpuscular Volume 90.5 fL (80-100); Mean Platelet Volume 10.1 fL (7.4-10.4); Monocytes # (auto) 1.74 K/uL (0.11-0.59); Monocytes % (auto) 13.7 %; Neutrophils % (auto) 70.2 %; Platelet Count 214 K/uL (130-400); RDW Coefficient of Variation 12.8 % (11.5-14.5); RDW Standard Deviation 42.4 fL (36.4-46.3); White Blood Count 12.69 K/uL (4.8-10.8)
[2019-03-28 08:52] LABS: BUN Creatinine Ratio 11.1 (10-20); Est GFR (African American) 85.9; Est GFR (Non-African American) 74.1; Potassium 3.9 mmol/L (3.5-5.1)
[2019-03-28] MEDS: SACCHAROMYCES BOULARDII 250 MG CAP PO SCH (08:54)
[2019-03-28] MEDS: SODIUM CHLORIDE 0.9% 1000ML 1,000 ML IV SCH (13:23)
--- NOTE | 2019-03-28 14:59 | Surgery Consultation ---
Date of Consultation March 28, 2019 Assessment & Plan (1) Abscess of leg, left: pt is a 53 year-old male who was admitted to hospital for left thigh abscess, U/S study : left thigh abscess IMP: left lateral thigh abscess, Plan, I recommend to do incision and drainage left lateral thigh abscess, pt requests only under local anesthesia, ( pt had lunch 3 hours ago). D/W benefits, risks nad alternatives of the surgery, the risks - infection, bleeding, sepsis, multiple organs failure, , pt understood, he agrees with the surgery, I answered all questions, History of Present Illness Attending Physician: Charlotte Becker MD Chief Complaint: Cellulitis Primary Care Provider: Shyam Byrd MD Shamar Adan is a pleasant 53yo C male with no significant past medical or surgical history presenting with cellulitis of the left thigh. Patient was kayaking 7 days ago and thinks he may have gotten a bug bite on his left lateral thigh. Over the last week he developed progressive redness, swelling and induration of the area. He has had increased pain and difficulty walking. Also with some flu-like symptoms which began two days ago - malaise/fatigue and body aches. He denies fevers/chills/nausea/vomiting/diarrhea/constipation. He has been using a warm compress and topical antibiotics, tried to squeeze the indurated area and got a small amount of blood from it, no pus. He is frequently outdoors and enjoys camping, hiking and mushrooming. He does not recall having any tick bites. He does comment that he has had several months of fatigue. Also with a dull frontal RAMIREZ. I ( cely Mosqueda MD ) got a call for consult left thigh abscess, I reviewed pt's H/P with pt, I agree with above history, I reviewed U/S study, Allergies Allergy/AdvReac Type Severity Reaction Status Date / Time acetaminophen Allergy Intermediate ITCH Unverified 12/11/16 21:11 hydrocodone Allergy Intermediate ITCH Unverified 03/27/19 16:36 pollen extracts Allergy Unknown UNKNOWN Unverified 03/27/19 16:36 latex Allergy Redness of Verified 03/27/19 22:58 Skin Home Medications Home Medications Medication Instructions Recorded Confirmed Type Unknown Allergy Eye Drops 1 drp OTB BID PRN 03/27/19 03/27/19 History albuterol sulfate [ProAir HFA] 2 puff INHALATION Q4H PRN 03/27/19 03/27/19 History azelastine 2 spray INTRANASAL DAILY PRN 03/27/19 03/27/19 History cetirizine 10 mg PO DAILY PRN 03/27/19 03/27/19 History epinephrine 0.3 mg IM Q3H PRN 03/27/19 03/27/19 History fluticasone propionate 2 spray INTRANASAL DAILY PRN 03/27/19 03/27/19 History Patient History Medical History No pertinent past medical history Surgical History No pertinent past surgical history Family History Other Cancer Diabetes Social History Preferred Language: Burkinan Communication Ability: Effective Beliefs That Will Affect Care: Anglican Anglican Beliefs: [place] Druze Current Living Situation: Spouse and Family Feels Safe at Home: Yes Smoking Status: Never smoker Second Hand Exposure: Yes (in childhood) Hx Alcohol Use: Yes Hx Substance Use: No Review of Systems Constitutional: as per Subjective / HPI Ear, Nose, Mouth, Throat: as per Subjective / HPI Respiratory: as per Subjective / HPI Cardiovascular: as per Subjective / HPI Additional Comments: tachycardia Gastrointestinal: as per Subjective / HPI Genitourinary: + as per Subjective / HPI Musculoskeletal: as per Subjective / HPI Integumentary: as per Subjective / HPI Neurologic: as per Subjective / HPI Psychiatric: as per Subjective / HPI Endocrine: as per Subjective / HPI Hematologic / Lymphatic: as per Subjective / HPI Physical Exam Constitutional: WD/WN, vitals as above well developed and well nourished ENMT: external ear and nose normal, oropharynx normal Ears: + hearing impairment Neck: trachea midline, no thyromegaly Respiratory: normal respiratory effort, lungs clear to auscultation normal respiratory effort Cardiovascular: RRR, no murmur, no edema Rate/Rhythm: regular rate and regular rhythm Heart Sounds: normal S1 and normal S2 Gastrointestinal (Abdomen): normal bowel sounds, soft, nontender, no hepatosplenomegaly Percussion/Palpation: abdomen soft NT, ND , BS + Musculoskeletal: no cyanosis or clubbing, extremities motor strength 5/5 Skin: redness, tenderness at left thigh, size [id number], no drainage Neurologic: patellar DTR's 2+ bilat, sensation intact Psychiatric: Orientation: oriented x 3 Lymphatic: no cervical or axillary lymphadenopathy Results & Data Vital Signs (Past 12 Hours) Vital Signs Temp Pulse Resp BP Pulse Ox 03/28/19 07:14 36.9 C 86 20 114/72 94 Laboratory Results Abnormal lab results 03/27/19 03/27/19 03/27/19 Range/Units 15:41 15:41 15:41 WBC 15.40 H (4.8-10.8) K/uL RBC (4.7-6.1) M/uL Hgb (14.0-18.0) g/dL Hct (42-52) % Immature Gran # (Auto) 0.04 H (0.00-0.02) K/uL Neut # (Auto) 11.60 H (1.4-6.5) K/uL [place] # (Auto) 1.61 H (0.11-0.59) K/uL Chloride (98-107) mmol/L Glucose 104 H (70-99) mg/dl Calcium (8.5-10.1) mg/dl AST 13 L (15-37) U/L Lyme Disease IgG Ab Positive A (Negative) Lyme Disease IgM Ab Equivocal A (Negative) 03/28/19 03/28/19 Range/Units 07:16 07:16 WBC 12.69 H (4.8-10.8) K/uL RBC 4.40 L (4.7-6.1) M/uL Hgb 13.4 L (14.0-18.0) g/dL Hct 39.8 L (42-52) % Immature Gran # (Auto) 0.04 H (0.00-0.02) K/uL Neut # (Auto) 8.90 H (1.4-6.5) K/uL [place] # (Auto) 1.74 H (0.11-0.59) K/uL Chloride 108 H (98-107) mmol/L Glucose (70-99) mg/dl Calcium 8.0 L (8.5-10.1) mg/dl AST (15-37) U/L Lyme Disease IgG Ab (Negative) Lyme Disease IgM Ab (Negative) Diagnostic Findings ULTRASOUND LEFT LOWER EXTREMITY NONVASCULAR CLINICAL HISTORY: Left lateral thigh infection. COMPARISON STUDY: No priors. FINDINGS: Real-time, grayscale, and color flow sonography of the soft tissues of the left thigh is performed at the indicated site of interest. There is subcutaneous soft tissue edema and subcutaneous fluid identified at this site with probable phlegmonous change. No organized fluid collection is identified to indicate abscess. IMPRESSION: There is subcutaneous soft tissue edema and fluid identified at the indicated site of interest which likely represents cellulitis. No organized fluid collection is seen to suggest abscess.
--- NOTE | 2019-03-28 15:05 | History & Physical Bridge Note ---
Date of Service March 28, 2019 History & Physical Bridge Note I have examined the patient, reviewed the History & Physical and in the interval since the performance of the History & Physical I have noted the following changes of clinical significance: no changes noted
[2019-03-28] MEDS ORDERED: LIDOCAINE HCL 1% 20 ML VIAL ONE (15:12)
[2019-03-28] MEDS ORDERED: BUPIVACAINE 0.5 % 5 MG/1 ML MPF 30ML VIAL ONE (15:12)
[2019-03-28] MEDS ORDERED: MoRPHine SULFATE 2 MG/ML CARP IV STA (15:29)
[2019-03-28] MEDS ORDERED: MoRPHine SULFATE 4 MG/ML 1 ML CARP\\VIAL ONE (15:32)
[2019-03-28] MEDS: LACTATED RINGER'S 1,000 ML IV SCH ×2 (15:35→15:52)
[2019-03-28] MEDS ORDERED: BACITRACIN OINT 15 GM TUBE ONE (15:36)
--- NOTE | 2019-03-28 16:05 | Post Operative Brief Note ---
Immediate Post Op Note v1 Date of Surgery March 28, 2019 Pre & Post Diagnosis Operation Date: 03/28/19 17:15 Pre-Op Diagnosis: Left thigh cellulitis, abscess Post-Op Diagnosis: Left thigh cellulitis, abscess Procedure Operation Date: 03/28/19 17:15 incision and drainage left lateral thigh abscess Surgeon Macario Mosqueda MD Supervisor Brine surgical garment fitter Estimated Blood Loss 5 Findings Consistent with Post-Op Diagnosis left lateral thigh abscess Fluids 200ml Specimens wound culture Drains Other (packing the wound) Anesthesia Type Local Complications none Disposition Accompanied Patient To Recovery: Yes Disposition: Recovery Room Overlapping Procedure I was immediately available: during the entire case.
[2019-03-28] MEDS ORDERED: EPINEPHRINE ADULT AUTO-INJECT 0.3 MG SYR IM PRN (16:50)
[2019-03-28] MEDS ORDERED: ALBUTEROL HFA 8 GM INHALER INH PRN (16:50)
[2019-03-28] MEDS ORDERED: TRAMADOL HCL 50 MG TABLET PO PRN (16:50)
--- NOTE | 2019-03-28 19:46 | Hospitalist Progress Note ---
Date of Service March 28, 2019 Assessment & Plan (1) Cellulitis: Patient with moderately severe non-purulent LLE cellulitis, progressive over the last week. Patient tachycardic on arrival, neutrophil predominant leukocytosis with WBC=15.4. Systemic symptoms of malaise, fatigue and chills. Presently afebrile, hemodynamically stable Leukocytosis improved today BCx NGTD Today, he now has good amount of fluctuance and purulent material is draining from the thigh abscess -consulted gen Surgery for I&D which was completed on 03/28 -follow WOund cxs--> Gram stain with GPC -continue Clindamycin 600mg IV q 8 hours -f/u on all cx results -continue wound care with dressing changes and will need packing exchange -follow CBC in AM -continue probiotics (2) Positive Lyme disease serology: Patient with equivocal IgM, and positive IgG and has a h/o multiple tick bites but usually tests negative when previously checked While I do not htink his current systemic symptoms are from Lyme disease, it is reasonable to treat him for Lyme The left thigh erythema does not appear to be EM/bullseye -continue Doxycycline 100mg iV BID and convert to po x total 28 days after discharge at pt's request--> could be 14 days but pt wants to do a whole 4 weeks -Await serologies F/E/N - can dc NSS, Regular diet as tolerated Ppx - Low risk Code - Full Dispo - continued stay and if abscess/cellulitis is improved tomorrow, can dc to home Subjective Feels overall much better than yesterday. States his flu-like symptoms have all resolved. He denies CP or SOB, denies N/V, denies abd pain or diarrhea. His thigh is now draining purulent fluid Is anxious to get out of the hospital Discussed the case with Gen Surgery both before and after I&D today Review of Systems Review of Systems: All systems reviewed & are unremarkable except as noted in HPI & below Physical Exam Constitutional: WD/WN, vitals as above Eyes: PERRL, conjunctivae normal, anicteric sclerae ENMT: external ear and nose normal, oropharynx normal Neck: trachea midline, no thyromegaly Respiratory: normal respiratory effort, lungs clear to auscultation Cardiovascular: RRR, no murmur, no edema Gastrointestinal (Abdomen): normal bowel sounds, soft, nontender, no hepatosplenomegaly Musculoskeletal: Extremities: extremities normal to inspection; no cyanosis and no clubbing Skin: left anterolat thigh with 10cm erythematous patch with central induration and fluctuance, with purulent material able to be expressed with pressure applied. 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 Neurologic: moves all extremities and awake; no focal motor deficits Psychiatric: A+Ox3, euthymic affect Results & Data Vital Signs (Past 12 Hours) Vital Signs Temp Pulse Pulse Resp BP BP Pulse Ox 03/28/19 15:58 88 16 138/91 100 03/28/19 15:53 88 18 152/87 H 100 03/28/19 15:48 88 16 134/90 100 03/28/19 15:43 90 16 135/84 98 03/28/19 15:30 36.8 C 93 H 18 113/84 98 03/28/19 15:15 36.7 C 83 18 132/82 100 Laboratory Results 03/28/19 03/28/19 Range/Units 07:16 07:16 WBC 12.69 H (4.8-10.8) K/uL RBC 4.40 L (4.7-6.1) M/uL Hgb 13.4 L (14.0-18.0) g/dL Hct 39.8 L (42-52) % MCV 90.5 (80-100) fL MCH 30.5 (25-34) pg MCHC 33.7 (32-36) g/dL RDW Std Deviation 42.4 (36.4-46.3) fL RDW Coeff of Shaq 12.8 (11.5-14.5) % Plt Count 214 (130-400) K/uL MPV 10.1 (7.4-10.4) fL Immature Gran % (Auto) 0.3 % Neut % (Auto) 70.2 % Lymph % (Auto) 13.5 % [place] % (Auto) 13.7 % Eos % (Auto) 2.1 % Baso % (Auto) 0.2 % Immature Gran # (Auto) 0.04 H (0.00-0.02) K/uL Neut # (Auto) 8.90 H (1.4-6.5) K/uL Lymph # (Auto) 1.71 (1.2-3.4) K/uL [place] # (Auto) 1.74 H (0.11-0.59) K/uL Eos # (Auto) 0.27 (0-0.5) K/uL Baso # (Auto) 0.03 (0-0.2) K/uL Sodium 139 (136-145) mmol/L Potassium 3.9 (3.5-5.1) mmol/L Chloride 108 H (98-107) mmol/L Carbon Dioxide 26 (21-32) mmol/L Anion Gap 5.0 (3-11) BUN 12 (7-18) mg/dl Creatinine 1.12 (0.6-1.4) mg/dl Est Cr Clr Drug Dosing 88.0 ml/min Est GFR ( Amer) 85.9 Est GFR (Non-Af Amer) 74.1 BUN/Creatinine Ratio 11.1 (10-20) Glucose 97 (70-99) mg/dl Calcium 8.0 L (8.5-10.1) mg/dl PG Care Time/CCT Total # of Minutes Spent Total Time Spent with Patient: Total time spent is greater than 50% in coordination of care (as documented) at patient's floor/unit and/or counseling patient: (1) Cellulitis Laterality: left Site of cellulitis: extremity Site of cellulitis of extremity: lower extremity Qualified Code(s): L03.116 - Cellulitis of left lower limb
--- NOTE | 2019-03-29 00:32 | Operative Report ---
DATE OF OPERATION: 03/28/2019 PREOPERATIVE DIAGNOSIS: Left lateral thigh abscess. POSTOPERATIVE DIAGNOSIS: Left lateral thigh abscess. PROCEDURE: Incision and drainage, left lateral thigh abscess. SURGEON: Macario Mosqueda MD ANESTHESIA: Local. ESTIMATED BLOOD LOSS: About 5 mL. FINDINGS: Abscess on the left lateral thigh wound culture sent. COMPLICATIONS: None. INDICATIONS FOR THE PROCEDURE: This is a 53-year-old gentleman who was admitted to hospital for 7-day history infection of the left thigh. The patient diagnosed with a left thigh abscess. I recommended to do the incision and drainage of left lateral thigh abscess. I did talk to the patient about the benefit, risk, alternate procedure. I indicated the risks may include but not limited such as bleeding, infection, sepsis, multiple organ failure, even . The patient understands. He wanted to do under local anesthesia only. The patient signed informed consent and I answered all questions. DETAILS OF PROCEDURE: We brought the patient to the OR, put the patient in the supine position. The patient received clindamycin IV 300 mg. Before patient came to the OR, patient's left sided thigh was prepped and draped in routine sterile fashion. After time out, reexamined the left thigh abscess. The cellulitis size is about 15 x 15 cm of the abscess around the 3 x 3 cm. After time out, I injected 1% lidocaine mixed with 0.5% Marcaine around the abscess that made about 3 cm incision on the skin. There was some pus come out. We did clean out the abscess and hemostasis obtained and sent the wound culture and packed the wound and we put the dressing on. Also, packed the wound using bacitracin and 0.5 inch strip. The patient tolerated the procedure well. All instrument, needle and sponge count were correct x2 at the end of case. The patient transferred back to his room in stable condition. I attest to the content of the Intraoperative Record and any orders documented therein. Any exceptions are noted below. DESTINEED
[2019-03-29] MEDS: CLINDAMYCIN 600 MG in DEXTROSE 5% 50 ML IV SCH ×2 (03:54→10:59)
[2019-03-29] MEDS: DOXYCYCLINE HYCLATE 100 MG in DEXTROSE 5% 100 ML IV SCH (06:00)
[2019-03-29 07:15] LABS: Basophils # (auto) 0.03 K/uL (0-0.2); Basophils % (auto) 0.3 %; Eosinophils # (auto) 0.57 K/uL (0-0.5); Eosinophils % (auto) 5.3 %; Hematocrit (blood only) 39.4 % (42-52); Hemoglobin 13.3 g/dL (14.0-18.0); Immature Granulocytes # (auto) 0.05 K/uL (0.00-0.02); Immature Granulocytes % (auto) 0.5 %; Lymphocytes # (auto) 2.13 K/uL (1.2-3.4); Lymphocytes % (auto) 19.7 %; Mean Corpuscular Hgb Conc 33.8 g/dL (32-36); Mean Corpuscular Volume 90.6 fL (80-100); Mean Platelet Volume 10.1 fL (7.4-10.4); Monocytes # (auto) 1.57 K/uL (0.11-0.59); Monocytes % (auto) 14.5 %; Neutrophils # (auto) 6.48 K/uL (1.4-6.5); Neutrophils % (auto) 59.7 %; Platelet Count 216 K/uL (130-400); RDW Coefficient of Variation 12.9 % (11.5-14.5); RDW Standard Deviation 42.7 fL (36.4-46.3); Red Blood Count 4.35 M/uL (4.7-6.1); White Blood Count 10.83 K/uL (4.8-10.8)
[2019-03-29 07:50] LABS: BUN Creatinine Ratio 12.2 (10-20); Calcium 8.2 mg/dl (8.5-10.1); Creatinine Clr Calc Pharmacy 87.2 ml/min; Est GFR (African American) 84.9; Est GFR (Non-African American) 73.3
[2019-03-29] MEDS: SACCHAROMYCES BOULARDII 250 MG CAP PO SCH (08:07)
--- NOTE | 2019-03-29 10:52 | Surgery Progress Note ---
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 Mosqueda. Dr. 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 There is induration present around wound about but erythema improved . No further fluctuance. Packing present in wound. Some edema of the left lower extremity. Results & Data Vital Signs (Past 12 Hours) Vital Signs Temp Pulse Resp BP Pulse Ox 03/29/19 07:57 36.7 C 91 H 19 119/77 94 03/29/19 05:04 37.0 C 72 19 122/76 95 03/28/19 23:55 36.7 C 81 20 111/68 94 Laboratory Results 03/29/19 03/29/19 Range/Units 06:36 06:36 WBC 10.83 H (4.8-10.8) K/uL RBC 4.35 L (4.7-6.1) M/uL Hgb 13.3 L (14.0-18.0) g/dL Hct 39.4 L (42-52) % MCV 90.6 (80-100) fL MCH 30.6 (25-34) pg MCHC 33.8 (32-36) g/dL RDW Std Deviation 42.7 (36.4-46.3) fL RDW Coeff of Shaq 12.9 (11.5-14.5) % Plt Count 216 (130-400) K/uL MPV 10.1 (7.4-10.4) fL Immature Gran % (Auto) 0.5 % Neut % (Auto) 59.7 % Lymph % (Auto) 19.7 % [place] % (Auto) 14.5 % Eos % (Auto) 5.3 % Baso % (Auto) 0.3 % Immature Gran # (Auto) 0.05 H (0.00-0.02) K/uL Neut # (Auto) 6.48 (1.4-6.5) K/uL Lymph # (Auto) 2.13 (1.2-3.4) K/uL [place] # (Auto) 1.57 H (0.11-0.59) K/uL Eos # (Auto) 0.57 H (0-0.5) K/uL Baso # (Auto) 0.03 (0-0.2) K/uL Sodium 138 (136-145) mmol/L Potassium 4.0 (3.5-5.1) mmol/L Chloride 107 (98-107) mmol/L Carbon Dioxide 29 (21-32) mmol/L Anion Gap 2.0 L (3-11) BUN 14 (7-18) mg/dl Creatinine 1.13 (0.6-1.4) mg/dl Est Cr Clr Drug Dosing 87.2 ml/min Est GFR ( Amer) 84.9 Est GFR (Non-Af Amer) 73.3 BUN/Creatinine Ratio 12.2 (10-20) Glucose 83 (70-99) mg/dl Calcium 8.2 L (8.5-10.1) mg/dl
--- NOTE | 2019-03-29 11:09 | Discharge Summary ---
Date of Service March 29, 2019 Admission HPI Per Admitting Provider Shamar Adan is a pleasant 53yo C male with no significant past medical or surgical history presenting with cellullitis of the left thigh. Patient was kayaking 7 days ago and thinks he may have gotten a bug bite on his left lateral thigh. Over the last week he developed progressive redness, swelling and induration of the area. He has had increased pain and difficulty walking. Also with some flu-like symptoms which began two days ago - malaise/fatigue and body aches. He denies fevers/chills/nausea/vomiting/diarrhea/constipation. He has been using a warm compress and topical antibiotics, tried to squeeze the indurated area and got a small amount of blood from it, no pus. He is frequently outdoors and enjoys camping, hiking and mushrooming. He does not recall having any tick bites. He does comment that he has had several months of fatigue. Also with a dull frontal RAMIREZ. ER Course: Ceftriaxone, Doxycycline, NSS Principal Diagnosis Left thigh abscess/cellulitis, Possible Lyme Disease Discharge Exam Constitutional WD/WN, vitals as above Eyes PERRL, conjunctivae normal, anicteric sclerae Neck trachea midline, no thyromegaly Respiratory normal respiratory effort, lungs clear to auscultation Cardiovascular RRR, no murmur, no edema Gastrointestinal (Abdomen) normal bowel sounds, soft, nontender, no hepatosplenomegaly Musculoskeletal Extremities: extremities normal to inspection; no cyanosis and no clubbing Skin Left distal anterior thigh with open incision over abscess with erythema reduced from previous, still with approx 6 cm of induration around incision, packing in place, draining bloody, purulent drainage, mild erythema spread beyond previous marker line proximally but no lymphangitic spread Mild left leg pitting edema Neurologic moves all extremities and awake; no focal motor deficits Psychiatric A+Ox3, euthymic affect Discharge Data Allergies Allergy/AdvReac Type Severity Reaction Status Date / Time acetaminophen Allergy Intermediate ITCH Unverified 12/11/16 21:11 hydrocodone Allergy Intermediate ITCH Unverified 03/27/19 16:36 pollen extracts Allergy Unknown UNKNOWN Unverified 03/27/19 16:36 latex Allergy Redness of Verified 03/27/19 22:58 Skin Consultations 03/27/19 17:08 ED Decision to Admit Stat 03/28/19 12:45 Consult General Surgery Routine Procedures Performed Operation Date: 03/28/19 17:15 Actual Procedures p Left Thigh Incision and Drainage(Left) - Macario Mosqueda MD Ordered Studies 03/27/19 15:11 US extremity nonvascular Stat Hospital Course (1) Cellulitis: Patient with moderately severe initially non-purulent LLE cellulitis, progressive over the last week. Patient tachycardic on arrival, neutrophil predominant leukocytosis with WBC=15.4. Systemic symptoms of malaise, fatigue and chills. Presently afebrile, hemodynamically stable, leukocytosis resolved BCx NGTD He developed good amount of fluctuance and purulent material is draining from the thigh abscess on hospital day #2 and had I&D performed at bedside by Surgery Zuleika payne and to be changed out tomorrow after discharge with iotoform soaked with bacitracin, continue daily overlying dressing changes and keep clean -follow Wound cxs--> Growing Staph species in all cultures at time of discharge with sensitivities pending -received Clindamycin 600mg IV q 8 hours while here and will convert to po doxy 100mg po bid for Staph coverage on discharge -f/u on all cx results by PCP after discharge -f/u with Surgery on Monday 04/02 -continue probiotics (2) Positive Lyme disease serology: Patient with equivocal IgM, and positive IgG and has a h/o multiple tick bites but usually tests negative when previously checked While I do not think his current systemic symptoms are from Lyme disease, it is reasonable to treat him for Lyme The left thigh erythema does not appear to be ECM/bullseye rash -continue Doxycycline 100mg po BID x total 28 days after discharge at pt's request--> could be 14 days but pt wants to do a whole 4 weeks -Await serologies-PCP can f/u on this Stable for dc to home Total Time Total Time Spent Total Time Spent (In Minutes): >30 min Total Time Includes: Examination of the Patient, Discharge Planning, Medication Reconciliation and Communication With Other Providers (Surgery) Discharge Plan Discharge Items Patient Disposition: Home - Self-Care Reason For Visit: CELLULITIS Discharge Diagnosis: Left thigh abscess/cellulitis Condition: Good Discharge Goals: Decrease discomfort, Diagnostic testing, Improve disease control, Learn about illness and Therapeutic intervention Activity: Resume your previous activity Lifting: Gradually increase as tolerated Bathing: Keep incision dry Exercise/Sports: Gradually increase as tolerated Driving/Machine Use: No limitations Non-emergency contact: Primary Care Provider and Surgeon Call non-emergency contact if: you have any medication questions, your symptoms worsen, your pain is not controlled, your pain is worsening, your pain is unusual for you, your pain is concerning for you, you have a fever and your temperature is above 101 Follow-up/Referrals: Fercho Byrd MD [Primary Care Provider] - 04/08/19 2:00 pm (Please, follow up at Dr. Byrd's office with his associate, Chelsi GILL, on MondayApril 08 at 2:00 pm. *If you need to change this appointment, call their office at [phone].) Macario Mosqueda MD [Physician] - 04/02/19 3:30 pm (Please, follow up with Dr. Mosqueda on MondayApril 02 at 3:30 pm. *The office is located in [facility]. If you have any questions, call the office at [phone].) Diet: Regular Addtl Provider Instructions: Surgical discharge instructions: - You may shower, cover wound with plastic and keep dry - Change dressing daily or as needed to keep dry. May use cling wrap and azalia wrap around wound. Change packing daily ( Iodoform packing with bacitracin) - Keep leg elevated - Take antibiotics as prescribed - Take pain medication as prescribed. If taking narcotic would recommend stool softener daily to prevent constipation - May take extra strength Ibuprofen as needed for mild pain. - Follow up in surgical office ([facility]) on Monday with Dr. Mosqueda, please call office at [phone] if you have any questions Prescriptions: New nicotine 7 mg/24 hr Patch 24 Hour 14 mg transdermal QAM Qty: 14 RF: 0 Florastor 250 mg Capsule 250 mg PO DAILY Qty: 30 RF: 0 doxycycline hyclate 100 mg tablet 100 mg PO BID 26 Days Qty: 52 RF: 0 Continued azelastine 137 mcg (0.1 %) aerosol,spray 2 spray intranasal DAILY PRN (Reason: Allergy Symptoms) RF: 0 fluticasone propionate 50 mcg/actuation spray,suspension 2 spray intranasal DAILY PRN (Reason: Allergy Symptoms) RF: 0 cetirizine 10 mg Tablet 10 mg PO DAILY PRN (Reason: Allergy Symptoms) RF: 0 albuterol sulfate [ProAir HFA] 90 mcg/actuation HFA aerosol inhaler 2 puff inhalation Q4H PRN (Reason: Shortness Of Breath Or Wheezing) RF: 0 epinephrine 0.3 mg/0.3 mL Auto-Injector 0.3 mg IM Q3H PRN (Reason: Allergy Symptoms) RF: 0 Unknown Allergy Eye Drops 1 drp OTB BID PRN (Reason: Allergy Symptoms) RF: 0 Stand-Alone Forms: [facility] Discharge Orders: Discharge Order (Routine); Ordered 03/29/19 Ordered By: Charlotte Becker Admission Data Admit Date/Time: 03/27/19 18:15 Attending Provider: Charlotte Becker Admit Provider: Cyndie Myers Primary Care Provider: Fercho Byrd Other Providers: Cyndie Myers ; Macario Mosqueda Service: Medical Other Interventions: Discharge Summary Assessment (RN) Last Done: 03/29/19 10:56 Pending Studies at Discharge: Yes (Final Wound culture result, Lyme Western Blot)
[2019-04-04 11:31] LABS: 18KDIGG Band REACTIVE (NONREACTIVE); 23KDIGG Band REACTIVE (NONREACTIVE); 23KDIGM Band REACTIVE (NONREACTIVE); 28KDIGG Band NONREACTIVE (NONREACTIVE); 30KDIGG Band NONREACTIVE (NONREACTIVE); 39KDIGG Band REACTIVE (NONREACTIVE); 39KDIGM Band NONREACTIVE (NONREACTIVE); 41KDIGG Band NONREACTIVE (NONREACTIVE); 41KDIGM Band NONREACTIVE (NONREACTIVE); 45KDIGG Band NONREACTIVE (NONREACTIVE); 58KDIGG Band NONREACTIVE (NONREACTIVE); 66KDIGG Band NONREACTIVE (NONREACTIVE); 93KDIGG Band NONREACTIVE (NONREACTIVE); Lyme Antibodies, WB IgG NEGATIVE (NEGATIVE); Lyme Antibodies, WB IgM NEGATIVE (NEGATIVE)
== END 2019-03-29 11:50 | disposition home or self-care (01) ==
LOC: ED 14:44 → 2N 14:44